=== PATIENT | female | born 1980 | race Asian ===

== ENCOUNTER 2019-07-26 13:17 | Emergency (ER) | payer OTHER, SELFPAY ==
[2019-07-26] MEDS ORDERED: ACETAMINOPHEN 325 MG TABLET (FP) PO ONE (13:25)
[2019-07-26 13:55] VITALS: BP 160/92; PULSE 133; TEMP 101.3
== END 2019-07-26 13:40 | disposition home or self-care (01) ==
LOC: JER 13:17
DX: R50.9 Fever, unspecified (principal); R05 Cough; R19.7 Diarrhea, unspecified
CPT/HCPCS: 99282-25; U0002

== ENCOUNTER 2021-04-22 18:24 | Emergency (ER) | payer BC, SELFPAY | END 2021-04-22 18:41 | disposition home or self-care (01) | LOC: JVIRT 18:24 | DX: U07.1 COVID-19 (principal) | CPT/HCPCS: C9803-CS; Q3014-GT; U0003; U0005 ==

== ENCOUNTER 2023-02-07 14:15 | Emergency (ER) | payer BC ==
[2023-02-07 14:27] VITALS: RESP 18; TEMP 99.2; BMI 32.8
[2023-02-07 15:02] VITALS: BP 120/86; PULSE 79
[2023-02-07 15:14] LABS: BASO % 0.8 % (0-2.0); EOS % 3.1 % (0-4.5); HEMATOCRIT 45.4 % (32.4-45.2); HEMOGLOBIN 14.6 GM/dL (10.7-15.3); LYMPH % 27.1 % (8-40); MCH 25.4 pg (25.7-33.7); MCHC 32.1 g/dl (32.0-36.0); MEAN CELL VOLUME 79.2 fl (80-96); MEAN PLT VOLUME 7.6 fl (7.5-11.1); MONO % 8.8 % (3.8-10.2); NEUT % 60.2 % (42.8-82.8); PH,URINE 5.5 (5.0-8.0); PLATELET COUNT 371 10^3/uL (134-434); RBC 5.73 M/mm3 (3.60-5.2); RDW 14.6 % (11.6-15.6); URINE APPEARANCE CLEAR; URINE BILIRUBIN NEGATIVE (NEGATIVE); URINE COLOR YELLOW; URINE GLUCOSE (UA) 3+ (NEGATIVE); URINE KETONE TRACE (NEGATIVE); URINE LEUK ESTERASE NEGATIVE (NEGATIVE); URINE NITRITE NEGATIVE (NEGATIVE); URINE PROTEIN NEGATIVE (NEGATIVE); URINE UROBILINOGEN 0.2 mg/dL (0.2-1.0); WHITE BLOOD COUNT 11.3 K/mm3 (4.0-10.0)
[2023-02-07] MEDS ORDERED: ACETAMINOPHEN 325 MG TABLET (FP) PO ONE (15:18)
[2023-02-07 15:45] LABS: POTASSIUM 4.3 mmol/L (3.5-5.1)
[2023-02-07 15:47] LABS: CALCIUM 8.9 mg/dL (8.5-10.1)
[2023-02-07 15:48] LABS: ALBUMIN 4.2 g/dl (3.4-5.0); BLOOD UREA NITROGEN 11.2 mg/dL (7-18)
[2023-02-07 15:51] LABS: CREATININE 0.8 mg/dL (0.55-1.3)
[2023-02-07 15:52] LABS: BILIRUBIN,TOTAL 0.9 mg/dL (0.2-1)
[2023-02-07 15:53] LABS: TOT PROT 7.7 g/dl (6.4-8.2)
[2023-02-07] MEDS ORDERED: SODIUM CHLORIDE 0.9% 1000 ML INFUS.BAG IV ONE (16:27)
== END 2023-02-07 16:45 | disposition home or self-care (01) ==
LOC: JER 14:15
DX: I10 Essential (primary) hypertension (principal); R42 Dizziness and giddiness; R53.1 Weakness; H53.8 Other visual disturbances; R68.83 Chills (without fever); Z20.822 Contact with and (suspected) exposure to COVID-19
CPT/HCPCS: 0241U-QW; 36415; 71046-TC-FY; 80053; 81003; 84443; 84484; 84703; 85025; 87086; 93005; 93010; 99285-25